=== PATIENT | male | born 1950 | race Caucasian/White ===

== ENCOUNTER 2020-12-23 20:28 | Emergency (ER) | payer OTHER ==
[~2020-12-23] VITALS: Ht 162.6 cm; Wt 69.8 kg
[~2020-12-23 20:28] MED LIST: ASPI325; LISI20 PO; Multiple Vitam1 EAC1; ROSU5 PO; Viagra100 MG PO
[2020-12-23] MEDS ORDERED: FINA5 PO (20:45)
[2020-12-23] MEDS ORDERED: TAMS.4ER PO (20:45)
[2020-12-23 21:16] LABS: Source, Urine Catheter
[2020-12-23 21:18] LABS: Bilirubin, Urine Neg (Neg); Blood, Urine 3+ (Neg); Glucose Qualitative, Urine Neg (Neg); Ketones, Urine Neg (Neg); Leukocyte Esterase, Urine Neg (Neg); Nitrite, Urine Neg (Neg); Protein, Urine Neg (Neg); Urobilinogen, Urine NORM (Normal)
[2020-12-23 21:27] LABS: Appearance, Urine Clear (Clear); Color, Urine Yellow (P-Yellow)
[2020-12-23 21:28] LABS: White Blood Cells, Urine 0-2 /hpf (0-5)
[2020-12-23 21:29] LABS: Bacteria Rare /hpf; Squamous Epithelial Cells Not Seen /hpf (Few)
== END 2020-12-23 22:20 | disposition home or self-care (01) ==
LOC: ER 20:28
PROVIDERS: Emergency Medicine
DX: N40.1 Benign prostatic hyperplasia with lower urinary tract symptoms (principal); R33.8 Other retention of urine; I10 Essential (primary) hypertension; Z88.8 Allergy status to other drugs, medicaments and biological substances; Z79.82 Long term (current) use of aspirin; Z79.899 Other long term (current) drug therapy
CPT/HCPCS: 51702; 51798; 81001; 99283-25

== ENCOUNTER → 2020-12-25 | Outpatient (CLI) | payer OTHER ==
[~2020-12-25] MED LIST changes: +FINA5 PO; +TAMS.4ER PO
== END | disposition home or self-care (01) ==
LOC: LAB 16:26 → LAB SHORT 16:26
DX: R33.9 Retention of urine, unspecified (principal)
CPT/HCPCS: 87086

== ENCOUNTER 2022-04-17 12:09 | Day surgery (SDC) | payer OTHER ==
[~2022-04-17] VITALS: Ht 162.6 cm; Wt 70.9 kg
== END 2022-04-17 14:23 | disposition home or self-care (01) ==
LOC: ORSCSDS 12:09
PROVIDERS: Internal Medicine Gastroenterology
PROC: 0DBL8ZX Excision of Transverse Colon, Via Natural or Artificial Opening Endoscopic, Diagnostic (ICD-10-PCS; principal; 2022-04-17 14:30)
PROC: 0DBN8ZX Excision of Sigmoid Colon, Via Natural or Artificial Opening Endoscopic, Diagnostic (ICD-10-PCS; principal; 2022-04-17 14:30)
PROC: 0DBP8ZX Excision of Rectum, Via Natural or Artificial Opening Endoscopic, Diagnostic (ICD-10-PCS; principal; 2022-04-17 14:30)
DX: Z12.11 Encounter for screening for malignant neoplasm of colon (principal); Z86.010 Personal history of colon polyps; D12.3 Benign neoplasm of transverse colon; D12.8 Benign neoplasm of rectum; K63.5 Polyp of colon; K62.1 Rectal polyp; K63.89 Other specified diseases of intestine; K57.30 Diverticulosis of large intestine without perforation or abscess without bleeding; K64.8 Other hemorrhoids; I10 Essential (primary) hypertension; Z87.891 Personal history of nicotine dependence; Z79.899 Other long term (current) drug therapy; Z79.82 Long term (current) use of aspirin
CPT/HCPCS: 88305; J2704; J7120

== ENCOUNTER → 2023-11-14 | Outpatient (CLI) | payer OTHER ==
[~2023-11-14] MED LIST changes: +CEFP200 PO; +ERLEADA60 MG PO; +ORGOVYX120 MG PO
[2023-11-14 12:13] LABS: BASOPHILS ABSOLUTE AUTO 0.15 K/mm3 (0.00-0.23); BASOPHILS PERCENT AUTO 1 % (0-2); EOSINOPHILS ABSOLUTE AUTO 0.26 K/mm3 (0.00-0.68); EOSINOPHILS PERCENT AUTO 2 % (0-6); Hematocrit 34.3 % (37.0-53.0); Hemoglobin 11.5 g/dL (13.5-17.5); IMMATURE GRAN ABSOLUTE AUTO 0.08 K/mm3 (0.00-0.10); IMMATURE GRAN PERCENT AUTO 1 % (0-1); LYMPHOCYTES ABSOLUTE AUTO 0.98 K/mm3 (0.84-5.20); LYMPHOCYTES PERCENT AUTO 7 % (21-46); MONOCYTES ABSOLUTE AUTO 1.85 K/mm3 (0.16-1.47); MONOCYTES PERCENT AUTO 13 % (4-13); Mean Corpuscular HGB 30.3 pg (26.0-34.0); Mean Corpuscular HGB Conc 33.5 g/dL (31.5-36.5); Mean Corpuscular Volume 91 fL (80-100); Mean Platelet Volume 8.3 fL (9.1-12.4); NEUTROPHILS ABSOLUTE AUTO 11.16 K/mm3 (1.96-9.15); NEUTROPHILS PERCENT AUTO 77 % (41-73); Platelet Count 761 K/mm3 (150-400); RDW Coefficient Variation 15.8 % (11.7-14.2); RDW Standard Deviation 50.9 fL (35.1-46.3); Red Blood Cell Count 3.79 M/mm3 (4.30-5.90); White Blood Cell Count 14.48 K/mm3 (4.00-11.30)
[2023-11-14 12:25] LABS: Albumin, Blood 2.9 g/dL (3.4-5.0); Albumin/Globulin Ratio 0.8 (0.8-1.8); Bilirubin, Total 0.3 mg/dL (0.1-1.0); Bun/Creatinine Ratio 12.4 (12.0-20.0); Calcium, Blood 8.4 mg/dL (8.5-10.1); Creatinine, Blood 0.97 mg/dL (0.60-1.20); Globulin, Blood 3.8 g/dL (2.2-4.0); Potassium, Blood 4.6 mmol/L (3.5-5.5); Total Protein, Blood 6.7 g/dL (6.4-8.2)
== END | disposition home or self-care (01) ==
LOC: LAB 12:10 → LAB SHORT 12:10
PROVIDERS: Internal Medicine
DX: R06.02 Shortness of breath (principal)
CPT/HCPCS: 80053; 83880; 85025

== ENCOUNTER 2023-11-19 09:36 | Inpatient (IN) | payer OTHER ==
[~2023-11-19] VITALS: Ht 160 cm; Wt 73.8 kg
[~2023-11-19 09:36] MED LIST changes: -CEFP200 PO; +Crestor40 MG PO; -ERLEADA60 MG PO; -ORGOVYX120 MG PO; -ROSU5 PO
[2023-11-19 10:23] LABS: BASOPHILS ABSOLUTE AUTO 0.15 K/mm3 (0.00-0.23); BASOPHILS PERCENT AUTO 1 % (0-2); EOSINOPHILS ABSOLUTE AUTO 0.07 K/mm3 (0.00-0.68); EOSINOPHILS PERCENT AUTO 1 % (0-6); Hematocrit 31.8 % (37.0-53.0); Hemoglobin 10.6 g/dL (13.5-17.5); IMMATURE GRAN ABSOLUTE AUTO 0.08 K/mm3 (0.00-0.10); IMMATURE GRAN PERCENT AUTO 1 % (0-1); LYMPHOCYTES ABSOLUTE AUTO 0.96 K/mm3 (0.84-5.20); LYMPHOCYTES PERCENT AUTO 7 % (21-46); MONOCYTES ABSOLUTE AUTO 1.76 K/mm3 (0.16-1.47); MONOCYTES PERCENT AUTO 13 % (4-13); Mean Corpuscular HGB 29.5 pg (26.0-34.0); Mean Corpuscular HGB Conc 33.3 g/dL (31.5-36.5); Mean Corpuscular Volume 89 fL (80-100); Mean Platelet Volume 8.3 fL (9.1-12.4); NEUTROPHILS PERCENT AUTO 78 % (41-73); Platelet Count 647 K/mm3 (150-400); RDW Coefficient Variation 15.5 % (11.7-14.2); RDW Standard Deviation 50.3 fL (35.1-46.3); Red Blood Cell Count 3.59 M/mm3 (4.30-5.90); White Blood Cell Count 14.02 K/mm3 (4.00-11.30)
--- NOTE | 2023-11-19 10:31 | NUR ---
Spritual Care Visit pt. is known to this swing tender as his spouse was a recent Pt. Pt. displays evidence of being engaged, alert, and aware. Pts. neighbor is at bedside as is her granddaughter. Considered matters of the pts. health journey. Prayed with Pt. Pt. and those at bedside verbalized gratitude for the spiritual care visit. Will remain available to the Pt.
[2023-11-19 10:36] LABS: Albumin, Blood 2.4 g/dL (3.4-5.0); Albumin/Globulin Ratio 0.6 (0.8-1.8); Bilirubin, Total 0.3 mg/dL (0.1-1.0); Bun/Creatinine Ratio 20.4 (12.0-20.0); C-REACTIVE PROTEIN, EXT RANGE 5.43 mg/dL (0.000-0.300); Calcium, Blood 8.2 mg/dL (8.5-10.1); Creatinine, Blood 0.69 mg/dL (0.60-1.20); Globulin, Blood 3.8 g/dL (2.2-4.0); Potassium, Blood 4.3 mmol/L (3.5-5.5); Total Protein, Blood 6.2 g/dL (6.4-8.2)
[2023-11-19 12:38] LABS: Influenza A, PCR NEGATIVE (NEGATIVE); Influenza B, PCR NEGATIVE (NEGATIVE); Resp Syncytial Virus, PCR NEGATIVE (NEGATIVE); SARS-Cov-2 (COVID-19) PCR, MMC NEGATIVE (NEGATIVE)
[2023-11-19] MEDS ORDERED: CefTRIAXone Sodium 1,000 MG in NS 100 ML IV ONE (12:55)
[2023-11-19] MEDS ORDERED: Azithromycin 500 MG in NS 250 ML IV ONE (12:55)
[2023-11-19] MEDS ORDERED: DiphenhydrAMINE HCL 25 MG Cap PO PRN (14:00)
[2023-11-19] MEDS ORDERED: Acetaminophen 325 MG TABLET PO PRN (14:00)
[2023-11-19] MEDS ORDERED: FLU VACC TS2024-25(6MOS UP)/PF 45 MCG/0.5 ML SYRINGE IM SCH (14:00)
[2023-11-19] MEDS ORDERED: Ondansetron HCl 2 MG / ML 2ML Vial IV PRN (14:00)
[2023-11-19] MEDS ORDERED: TraZODone HCl 50 MG Tab PO PRN (14:05)
[2023-11-19] MEDS ORDERED: Albuterol 2.5 MG/3 ML VIAL INH PRN (14:25)
--- NOTE | 2023-11-19 14:39 | NUR ---
Spiritual Care follow up Pt. is awake in bed and welcomes my visit. Facilitated an update on Pts. understanding of his plan of care. Normalize the Pt. experience and listen with interest and empathy. Pt. anticipates being admitted to the hospital, and verbalized gratitude for the spiritual care follow up.
[2023-11-19] MEDS ORDERED: NS 1,000 ML IV SCH (16:25)
[2023-11-19] MEDS ORDERED: NS 500 ML IV SCH (16:25)
[2023-11-19] MEDS ORDERED: NS 1,000 ML IV ONE ×4 (16:32→20:00)
[2023-11-19 20:39] LABS: Base Excess Venous -1.7 mmol/L; Bicarbonate Venous 23.6 mmol/L (24.0-30.0); pH Blood Venous 7.47 (7.34-7.37)
[2023-11-19] MEDS ORDERED: Famotidine 10 MG/ML 2ML Vial IV SCH (21:00)
[2023-11-19] MEDS ORDERED: Tamsulosin HCl 0.4 MG Cap PO SCH (21:00)
[2023-11-19] MEDS ORDERED: Sennosides 8.6 MG Tab PO SCH (21:00)
[2023-11-19] MEDS ORDERED: Lisinopril 20 MG Tab PO SCH ×2 (21:00)
[2023-11-19] MEDS ORDERED: Docusate Sodium 100 MG Cap PO SCH (21:00)
[2023-11-19 21:10] VITALS: BP 139/66
[2023-11-20 00:15] VITALS: BP 150/70
[2023-11-20 03:53] LABS: BASOPHILS ABSOLUTE AUTO 0.13 K/mm3 (0.00-0.23); BASOPHILS PERCENT AUTO 1 % (0-2); EOSINOPHILS ABSOLUTE AUTO 0.11 K/mm3 (0.00-0.68); EOSINOPHILS PERCENT AUTO 1 % (0-6); IMMATURE GRAN ABSOLUTE AUTO 0.12 K/mm3 (0.00-0.10); IMMATURE GRAN PERCENT AUTO 1 % (0-1); LYMPHOCYTES ABSOLUTE AUTO 0.63 K/mm3 (0.84-5.20); LYMPHOCYTES PERCENT AUTO 4 % (21-46); MONOCYTES ABSOLUTE AUTO 1.97 K/mm3 (0.16-1.47); MONOCYTES PERCENT AUTO 12 % (4-13); Mean Corpuscular HGB 29.8 pg (26.0-34.0); Mean Corpuscular HGB Conc 33.3 g/dL (31.5-36.5); Mean Corpuscular Volume 89 fL (80-100); Mean Platelet Volume 8.2 fL (9.1-12.4); NEUTROPHILS ABSOLUTE AUTO 13.31 K/mm3 (1.96-9.15); NEUTROPHILS PERCENT AUTO 82 % (41-73); Platelet Count 532 K/mm3 (150-400); RDW Coefficient Variation 15.9 % (11.7-14.2); RDW Standard Deviation 51.9 fL (35.1-46.3); Red Blood Cell Count 3.36 M/mm3 (4.30-5.90); White Blood Cell Count 16.27 K/mm3 (4.00-11.30)
[2023-11-20 04:13] LABS: Albumin, Blood 2.2 g/dL (3.4-5.0); Albumin/Globulin Ratio 0.7 (0.8-1.8); Bilirubin, Total 0.4 mg/dL (0.1-1.0); Bun/Creatinine Ratio 16.1 (12.0-20.0); Calcium, Blood 7.3 mg/dL (8.5-10.1); Creatinine, Blood 0.68 mg/dL (0.60-1.20); Globulin, Blood 3.2 g/dL (2.2-4.0); Potassium, Blood 4.5 mmol/L (3.5-5.5); Total Protein, Blood 5.4 g/dL (6.4-8.2)
[2023-11-20 04:19] VITALS: BP 118/66
--- NOTE | 2023-11-20 05:54 | NUR ---
SHIFT SUMMARY ASSUMED CARE OF PT AT 2018 WHO WAS TRANSFERED FROM ED. PT ARRIVED ON 6LNC SATTING AT 92%. OVERNIGHT PT DESAT TO 70% WHEN STOOD UP TO USE URINAL, PT BECAME TACHYPNEIC AND HR ELEVATED; NRB PLACED ON PT WHILE HE RECOVERED. PT THEN PLACED BACK ON 6L ONCE SATS CAME UP TO 100%. THIS WOULD OCCUR IF PT REPOSITION SELF WELL. CALLED RT TO EVALUATE PT; RT PLACED PT ON AIRVO AT 8L AND GRADUALLY HAD TO INCREASE TO 15L. RT RE-EVALUATED PT AND A CALL PLACED TO MD TO REQUEST HFNC. ORDERS PLACE. PT O2 MAINTAING 95% AND UP. PT'S BED IN LOWEST POSITION AND CALL LIGHT WITHIN REACH.
[2023-11-20 08:05] VITALS: BP 112/55
--- NOTE | 2023-11-20 08:30 | NUR ---
AM ASSESSMENT: Pt sitting up in bed with airvo on 45L 55%, biox 94% but desats to mid 80's with activity, LS with crackles in bases and diminished throughout. Resp rate mid 30's, very dispnic with activity. HR reg sinus tach. BT positive. pulses palp. Pt denies pain. Talked to patient about plan of care. Denies questions at this time. Will continue to monitor.
[2023-11-20] MEDS ORDERED: CefTRIAXone Sodium 2,000 MG in NS 100 ML IV SCH (09:00)
[2023-11-20] MEDS ORDERED: Finasteride 5 MG Tab PO SCH (09:00)
[2023-11-20] MEDS ORDERED: Azithromycin 500 MG in NS 250 ML IV SCH (09:00)
[2023-11-20] MEDS ORDERED: Enoxaparin 40 MG/0.4 ML SYR SC SCH (09:00)
[2023-11-20] MEDS ORDERED: Aspirin 81 MG Chew PO SCH (09:00)
[2023-11-20] MEDS ORDERED: ERLEADA60 MG PO (09:54)
[2023-11-20] MEDS ORDERED: ORGOVYX120 MG PO (09:55)
[2023-11-20] MEDS ORDERED: CEFP200 PO (09:57)
--- NOTE | 2023-11-20 11:33 | NUR ---
Pt. is awake in bed when he welcomes my visit. Pt. is pleasant and is known to this log marker from the community and previous family hospital visits. Facilitate an dupdate. Neighbor Homa who also serves as a care support person for the Pt. is at bedside. Seek to normalize the Pt. experience. Pt. displays evidence of trust, awareness, and engagement. Consider matters of [place] and belief. [place] for the Pt. Pt. adn caregiver both verbalize gratitude for the spiritual care visit. Will remain available.
[2023-11-20 11:50] VITALS: BP 114/69
[2023-11-20] MEDS ORDERED: Mometasone/Formoterol MDI 200/5 mcg 13 GM INH SCH (13:50)
[2023-11-20 15:34] VITALS: BP 148/71
[2023-11-20] MEDS ORDERED: ROSUVASTATIN CAL5 MG PO (16:04)
--- NOTE | 2023-11-20 18:44 | NUR ---
SHIFT SUMMARY: Pt resting in bed at this time. Has remained on Airvo throughout this shift, now at 45L 56%. Pt has been titrated up and down depending on biox. Pt desaturates with any kind of activity including using urinal in the bed. HR has remained in Sinus tach. HR increases with activity, up to 130-140. Pt had low grade fever, around 100.5. Cool washcloth given and temp decreased. Pt denies pain. Stated that his breathing felt a little better this afternoon, but still can't take a deep breath. Pt still very tachypnic at a rate of 36-40. BP has remained stable. Will continue to monitor patients needs and report to night rn.
[2023-11-20 20:27] VITALS: BP 121/65
[2023-11-20] MEDS ORDERED: MethylPREDNISolone Sod Succ 125 MG Vial IV SCH (21:00)
[2023-11-20] MEDS ORDERED: Lactobacil 2-S.Thermo-Bifido 1 1 Cap PO SCH (21:00)
[2023-11-21 00:12] VITALS: BP 116/65
[2023-11-21 03:37] LABS: BASOPHILS PERCENT AUTO 1 % (0-2); EOSINOPHILS ABSOLUTE AUTO 0.01 K/mm3 (0.00-0.68); EOSINOPHILS PERCENT AUTO 0 % (0-6); Hematocrit 29.2 % (37.0-53.0); Hemoglobin 9.4 g/dL (13.5-17.5); IMMATURE GRAN ABSOLUTE AUTO 0.08 K/mm3 (0.00-0.10); IMMATURE GRAN PERCENT AUTO 1 % (0-1); LYMPHOCYTES ABSOLUTE AUTO 0.86 K/mm3 (0.84-5.20); LYMPHOCYTES PERCENT AUTO 6 % (21-46); MONOCYTES ABSOLUTE AUTO 1.76 K/mm3 (0.16-1.47); MONOCYTES PERCENT AUTO 12 % (4-13); Mean Corpuscular HGB 29.1 pg (26.0-34.0); Mean Corpuscular HGB Conc 32.2 g/dL (31.5-36.5); Mean Corpuscular Volume 90 fL (80-100); NEUTROPHILS ABSOLUTE AUTO 12.47 K/mm3 (1.96-9.15); NEUTROPHILS PERCENT AUTO 82 % (41-73); Platelet Count 470 K/mm3 (150-400); RDW Coefficient Variation 15.9 % (11.7-14.2); RDW Standard Deviation 52.7 fL (35.1-46.3); Red Blood Cell Count 3.23 M/mm3 (4.30-5.90); White Blood Cell Count 15.28 K/mm3 (4.00-11.30)
[2023-11-21 03:56] VITALS: BP 122/63
[2023-11-21 04:01] LABS: Albumin, Blood 1.9 g/dL (3.4-5.0); Albumin/Globulin Ratio 0.6 (0.8-1.8); Bilirubin, Total 0.3 mg/dL (0.1-1.0); Bun/Creatinine Ratio 17.4 (12.0-20.0); Calcium, Blood 7.5 mg/dL (8.5-10.1); Creatinine, Blood 0.75 mg/dL (0.60-1.20); Globulin, Blood 3.2 g/dL (2.2-4.0); Potassium, Blood 4.5 mmol/L (3.5-5.5); Total Protein, Blood 5.1 g/dL (6.4-8.2)
--- NOTE | 2023-11-21 05:50 | NUR ---
SHIFT SUMMARY RESUMED CARE OF PT AT 1900. PT A&O4, COOPERATIVE IN CARE AND ABLE TO EXPRESS NEEDS. VSS, PT DENIES SOB AND CP. PT REMAINED ON HFNC 45L AT 59% WITH SATS >90%. NO ACUTE EVENTS OVERNIGHT. PT'S O2 SAT DROPS WITH ACTIVITY AND SO PT REMAINS ON BEDREST. BED IN LOWEST POSITION AND CALL LIGHT WITHIN REACH.
[2023-11-21 11:39] VITALS: BP 115/58
[2023-11-21] MEDS ORDERED: Vancomycin HCL 1,750 MG in NS 500 ML IV ONE (15:40)
[2023-11-21] MEDS ORDERED: Cefepime HCl 2,000 MG in NS 100 ML IV SCH (16:00)
[2023-11-21 17:10] VITALS: BP 116/68
[2023-11-21 18:29] LABS: Adenovirus Not Detected (NOT DETECT); Bordetella pertussis Not Detected (NOT DETECT); Chlamydophila pneumoniae Not Detected (NOT DETECT); Coronavirus 229E Not Detected (NOT DETECT); Coronavirus HKU1 Not Detected (NOT DETECT); Coronavirus NL63 Not Detected (NOT DETECT); Coronavirus OC43 Not Detected (NOT DETECT); Human Metapneumovirus Not Detected (NOT DETECT); Human Rhinovirus/Enterovirus Not Detected (NOT DETECT); Influenza A/2009-H1 Not Detected (NOT DETECT); Influenza A/H1 Not Detected (NOT DETECT); Influenza A/H3 Not Detected (NOT DETECT); Influenza B Not Detected (NOT DETECT); Mycoplasma pneumoniae Not Detected (NOT DETECT); Parainfluenza Virus 1 Not Detected (NOT DETECT); Parainfluenza Virus 2 Not Detected (NOT DETECT); Parainfluenza Virus 3 Not Detected (NOT DETECT); Parainfluenza Virus 4 Not Detected (NOT DETECT); Respiratory Syncytial Virus Not Detected (NOT DETECT); SARS-Cov-2 (COVID-19), BioFire Not Detected (NOT DETECT)
--- NOTE | 2023-11-21 19:41 | NUR ---
SHIFT SUMMARY PT IS A/O, PLEASANT AND COOPERATIVE. SR, BP WNL. AIRVO SETTINGS TITRATED TO KEEP SP02 > 90%. LUNGS COARSE, COUGH INTERMITTENT. DENIES NAUSEA, TOLERATING PO DIET WELL. NO BM TODAY. VOIDS USING URINAL IN BED. SKIN INTACT. PIV X2 INFUSING WELL. SEVERAL VISITORS TO BEDSIDE. CONSULT FOR ONCOLOGY AND PULMONOLOGY TODAY. DR. ALAMO TO BEDSIDE, SEE NEW ORDERS FOR ATB AND LABS. POC ONGOING.
[2023-11-21 20:31] VITALS: BP 124/70
[2023-11-21] MEDS ORDERED: Benzonatate 100 MG Cap PO PRN (23:30)
[2023-11-22] VITALS (7 sets, daily range): BP systolic 107–165; BP diastolic 48–87
[2023-11-22] MEDS ORDERED: Vancomycin HCL 1,250 MG in NS 250 ML IV SCH (04:00)
[2023-11-22 04:03] LABS: BASOPHILS ABSOLUTE AUTO 0.09 K/mm3 (0.00-0.23); BASOPHILS PERCENT AUTO 1 % (0-2); EOSINOPHILS ABSOLUTE AUTO 0.03 K/mm3 (0.00-0.68); EOSINOPHILS PERCENT AUTO 0 % (0-6); Hematocrit 28.1 % (37.0-53.0); Hemoglobin 9.1 g/dL (13.5-17.5); IMMATURE GRAN ABSOLUTE AUTO 0.09 K/mm3 (0.00-0.10); IMMATURE GRAN PERCENT AUTO 1 % (0-1); LYMPHOCYTES ABSOLUTE AUTO 0.59 K/mm3 (0.84-5.20); LYMPHOCYTES PERCENT AUTO 3 % (21-46); MONOCYTES PERCENT AUTO 11 % (4-13); Mean Corpuscular HGB 28.9 pg (26.0-34.0); Mean Corpuscular HGB Conc 32.4 g/dL (31.5-36.5); Mean Corpuscular Volume 89 fL (80-100); Mean Platelet Volume 8.5 fL (9.1-12.4); NEUTROPHILS ABSOLUTE AUTO 15.45 K/mm3 (1.96-9.15); NEUTROPHILS PERCENT AUTO 85 % (41-73); Platelet Count 475 K/mm3 (150-400); RDW Coefficient Variation 16.2 % (11.7-14.2); Red Blood Cell Count 3.15 M/mm3 (4.30-5.90); White Blood Cell Count 18.15 K/mm3 (4.00-11.30)
[2023-11-22 04:31] LABS: Albumin, Blood 1.9 g/dL (3.4-5.0); Albumin/Globulin Ratio 0.5 (0.8-1.8); Bilirubin, Total 0.4 mg/dL (0.1-1.0); Bun/Creatinine Ratio 21.9 (12.0-20.0); Calcium, Blood 7.6 mg/dL (8.5-10.1); Creatinine, Blood 0.73 mg/dL (0.60-1.20); Globulin, Blood 3.5 g/dL (2.2-4.0); Potassium, Blood 4.5 mmol/L (3.5-5.5); Total Protein, Blood 5.4 g/dL (6.4-8.2)
--- NOTE | 2023-11-22 05:18 | NUR ---
SHIFT SUMMARY. SHIFT HAS BEEN UNREMARKABLE. PT AOX4, PLEASANT, COOPERATIVE WITH CARE, CALLS APPROPRIATELY, ABLE TO MAKE NEEDS KNOWN. HAS BEEN ABLE TO REST COMFORTABLY THROUGHOUT MOST OF SHIFT. HAS REMAINED ON AIRVO THROUGHOUT SHIFT WITH O2 @ 45 L, FIO2 FLUCTUATING PRIMARILY IN THE 70s. HAS CONTINUED TO DENY PAIN. BP STABLE. INDEPENDENT WITH URINAL. HAS CONTINUED TO RUN SINUS TACH THROUGHOUT SHIFT. ABX ADMINISTERED ON TIME WITHOUT DIFFICULTY. BED LOCKED IN LOWEST POSITION. CALL LIGHT LEFT WITHIN REACH. CONTINUING TO MONITOR.
--- NOTE | 2023-11-22 07:54 | NUR ---
AM NOTE this rn assumed care at 0700. vital signs stable. tele sinus rhythm/sinsu tach 90-110s. patient transfered with patient healthcare account manager to chair with mininal assistance but decreased in oxygen to 66% on airvo 45l/min and 70%. this rn into room and increased oxygen to 90% and patient recovering. patient hung out in mid 80s to low 90s for about 5 mins. charge histotechnologist in room and aware. patient encouraged to breath in through his nose and pursed lip breathing due to patient being a mouth breather. patient recovered well and currently on 45l/min at 80-90% while sitting in chair eating breakfest. patient requires pre oxygenation before any activity. respirations are shallow and tachypnea in the 30s at this time. patient lung sounds dim upper lobes bilaterally and coarse dim crackles in lower lobes bilaterally. patient has a dry cough occasionally. respiratory aware. patient is alert and oriented x4. neuro is intact. patient is able to make needs known and uses call light appropriately. denies numbness or tingling in hands of feet. denies any chest pain or pain. skin is clean dry and intact. gi/gu is within normal limits. plan of care is up to date at this time.
[2023-11-22] MEDS ORDERED: Famotidine 20 MG Tab PO SCH (09:00)
[2023-11-22] MEDS ORDERED: MethylPREDNISolone Sod Succ 40 MG VIAL IV SCH ×2 (09:00→21:00)
--- NOTE | 2023-11-22 10:20 | NUR ---
UPDATE patient friend, layla in room and requesting update. this rn updated friend and addressed the patients friend concerns.
--- NOTE | 2023-11-22 12:18 | NUR ---
UPDATE patient hyperoxygenated prior to transfered back into bed. patient tolerated this well and oxygen level got to 83 with less than 2 min recover time. patient when xray in room and leaned forward and back from having imaging down desat into the low 80s and required oxygen to be turned back up. current settings on airvo 45l/min and 80%. patient recovered in about 3 mins into the high 80s low 90s.
--- NOTE | 2023-11-22 13:04 | NUR ---
UPDATE this rn called md marie to update on patient condition and going on bipap. current settings 01/22 at 55%. updated md rangel on condition and chest x ray results. md rangel inquiring about echo. senior technical business analyst coming in to do echo. plans up to date at this time.
--- NOTE | 2023-11-22 17:08 | NUR ---
shift summary md rangel in this afternoon and discussed prognosis with the patient and patients friend layla present for this conversation. see md rangel note for detials on this. after discussion patient and layla discussing what the next steps look like. this rn called patients daughter and updated hoa on the conversation that md rangel had with the patient. after this phone call hoa, her sister, and the patient had a conference call on the phone in the room discussing the news. from these conversations patient elected to be a DNR. this rn updated md marie on this and the DNR orders placed. palliative care order and spiritual care order in place. patient voiced to this rn that if he becomes bipap dependent at that time he wants to switch to comfort care. patient voiced this to family and friend as well. plan is up to date at this time. patient on airvo in the room at 45l/min and 80%.
[2023-11-22] MEDS ORDERED: HydrALAZINE HCl 20 MG / ML 1ML Vial IV PRN (21:20)
[2023-11-23 00:35] VITALS: BP 123/68
[2023-11-23 03:02] LABS: BASOPHILS ABSOLUTE AUTO 0.07 K/mm3 (0.00-0.23); BASOPHILS PERCENT AUTO 0 % (0-2); EOSINOPHILS ABSOLUTE AUTO 0.01 K/mm3 (0.00-0.68); EOSINOPHILS PERCENT AUTO 0 % (0-6); Hematocrit 28.4 % (37.0-53.0); Hemoglobin 9.2 g/dL (13.5-17.5); IMMATURE GRAN ABSOLUTE AUTO 0.18 K/mm3 (0.00-0.10); IMMATURE GRAN PERCENT AUTO 1 % (0-1); LYMPHOCYTES ABSOLUTE AUTO 0.33 K/mm3 (0.84-5.20); LYMPHOCYTES PERCENT AUTO 1 % (21-46); MONOCYTES ABSOLUTE AUTO 1.56 K/mm3 (0.16-1.47); MONOCYTES PERCENT AUTO 6 % (4-13); Mean Corpuscular HGB 28.5 pg (26.0-34.0); Mean Corpuscular HGB Conc 32.4 g/dL (31.5-36.5); Mean Corpuscular Volume 88 fL (80-100); Mean Platelet Volume 8.7 fL (9.1-12.4); NEUTROPHILS ABSOLUTE AUTO 24.06 K/mm3 (1.96-9.15); NEUTROPHILS PERCENT AUTO 92 % (41-73); Platelet Count 446 K/mm3 (150-400); RDW Coefficient Variation 16.3 % (11.7-14.2); RDW Standard Deviation 52.4 fL (35.1-46.3); Red Blood Cell Count 3.23 M/mm3 (4.30-5.90); White Blood Cell Count 26.21 K/mm3 (4.00-11.30)
[2023-11-23 03:23] LABS: Alanine Aminotransfer (ALT/SGP 15 U/L (12-78); Albumin, Blood 1.8 g/dL (3.4-5.0); Albumin/Globulin Ratio 0.5 (0.8-1.8); Alk Phos 107 U/L (50-136); Anion Gap 14 mmol/L (3-11); Aspartate Aminotrans (AST/SGOT 31 U/L (12-37); Bilirubin, Total 0.3 mg/dL (0.1-1.0); Blood Urea Nitrogen 17 mg/dL (8-24); Bun/Creatinine Ratio 24.6 (12.0-20.0); CO2, Blood 20 mmol/L (21-32); Calcium, Blood 7.7 mg/dL (8.5-10.1); Chloride, Blood 107 mmol/L (98-108); Creatinine, Blood 0.69 mg/dL (0.60-1.20); Globulin, Blood 3.4 g/dL (2.2-4.0); Glomerular Filtration Rate 98 (60-); Glucose, Blood 176 mg/dL (70-99); Potassium, Blood 4.9 mmol/L (3.5-5.5); Sodium, Blood 136 mmol/L (136-145); Total Protein, Blood 5.2 g/dL (6.4-8.2)
[2023-11-23 03:57] VITALS: BP 108/66
[2023-11-23] MEDS ORDERED: Vancomycin HCL 1,500 MG in NS 250 ML IV SCH (04:00)
--- NOTE | 2023-11-23 05:06 | NUR ---
SHIFT SUMMARY. PT CONDITION HAS OVERALL REMAINED STABLE THROUGHOUT SHIFT. PT WAS ON V60 @ CPAP SETTINGS THROUGHOUT MAJORITY OF SHIFT. AT ABOUT ~0330 THIS MORNING, PT REQUESTED TO TAKE OFF THE MASK AND SWITCH BACK TO THE AIRVO. AIRVO SETTINGS AT 45 L, 92% FIO2. DURING VERY BRIEF TIME SWITCHING BETWEEN V60 TO AIRVO, PT DESATURATED INTO LOW 80s AND TOOK SOME TIME TO RECOVER. SINCE THAT TIME, PT HAS BEEN WEARING THE AIRVO AT AFOREMENTIONED SETTINGS AND HAS MAINTAINED 88%=<. DESATURATES AT TIMES WITH TALKING OR DRINKING. WHEN DIRECTED TO FOCUS ON BREATHING, WILL RESATURATE WITH SOME EFFORT. UPON TAKING OFF V60 MASK, PT VOICED THAT HE "DOES NOT WANT TO DO THIS ANYMORE" AND THAT HE "KNOWS THAT EITHER WAY HE IS NOT GOING TO BE COMFORTABLE". [place] CONVERSATION WITH PT. THIS RN SPOKE WITH DAUGHTER EARLY IN SHIFT WHO INFORMED THAT SHE WOULD BE FLYING IN FROM [place] EARLY THIS MORNING TO VISIT PT. PT WAS AGREEABLE TO WEARING V60 IF NEED BE UNTIL HIS DAUGHTERS ARRIVE TO SEE HIM. SO LONG HIS O2 SATURATION ALLOWS IT, PT WOULD LIKE TO REMAIN ON AIRVO LONG POSSIBLE UNTIL DAUGHTERS ARRIVE. AGREED WITH THIS PLAN. HAVE BEEN CLOSELY MONITORING SINCE. PT HAS BEEN TACHYCARDIC AND TACHYPNEIC THROUGHOUT SHIFT. BP STABLE, MOST RECENT MEASURE SOMEWHAT SOFT. PT CONTINUES TO DENY PAIN AND REPORT BEING COMFORTABLE DESPITE CONDITION. REMAINS INDEPENDENT WITH URINAL. BED LOCKED IN LOWEST POSITION. CALL LIGHT LEFT WITHIN REACH. CONTINUING TO MONITOR.
--- NOTE | 2023-11-23 06:01 | NUR ---
MORE RECENT CONVERSATION WITH PT. WHILE PT WAS FALLING ASLEEP, SATS WERE DROPPING TO AND MAINTAINING AT 83-87%. WOKE PT TO DISCUSS AIRVO VS V60. REMINDED OF PREVIOUS CONVERSATION IN WHICH HE EXPLAINED THAT HE WANTED TO BE ABLE TO WEAR AIRVO DURING VISIT WITH DAUGHTERS. INFORMED THAT WEARING CPAP FOR AT LEAST FEW MORE HOURS WILL LIKELY HELP PT TO TOLERATE AIRVO BETTER DURING VISIT WITH DAUGHTERS. AT THIS TIME, PT IS OPTING TO STICK WITH AIRVO AND DOES NOT WANT TO GO BACK ON THE V60. DISCUSSION REGARDING POSSIBILITY OF SIGNIFICANTLY DECREASED O2 SATURATIONS THAT MIGHT NOT BE RECOVERED THROUGH AIRVO. PT INFORMED THAT EVEN IN SUCH AN EVENT HE WOULD PREFER TO REMAIN ON AIRVO VS V60. WHILE AWAKE, PT IS ABLE TO MAINTAIN 88%>. RT TUNED AIRVO TO 60 L. CONTINUING TO CLOSELY MONITOR.
[2023-11-23 08:22] VITALS: BP 140/67
[2023-11-23 11:42] VITALS: BP 122/66
--- NOTE | 2023-11-23 12:49 | NUR ---
ASSUMING CARE ASSUED CARE FROM ANOTHER PCU NURSE AT 1200. DID BEDSIDE HANDOFF TO MEET PT. FAMILY IN THE ROOM, CALL LIGHT IN REACH.
[2023-11-23] MEDS ORDERED: LORazepam 2 MG/ML 1ML Injection IV PRN (14:25)
[2023-11-23] MEDS ORDERED: Scopolamine Hydrobromide Patch TOP PRN (14:25)
[2023-11-23] MEDS ORDERED: Atropine Sulfate 1% Opth Soln 2ML BTL SL PRN (14:25)
[2023-11-23] MEDS ORDERED: HYDROmorphone HCl/Pf 1MG SYR IV PRN (14:25)
[2023-11-23] MEDS ORDERED: Morphine Sulfate 20 MG/1ML 1 ML Oral Syringe SL PRN (14:25)
--- NOTE | 2023-11-23 17:34 | NUR ---
MET WITH PATIENT TO DISCUSS GOALS. PROVIDER WAS PRESENT DURING THIS DISCUSSION AND DESCRIBED THEY DISEASE PROGRESSION. FRIEND WAS AT BEDSIDE. SHE REPORTED THAT THEY HAD AN INDEPTH CONVERSATION AND WERE WANTING TO SHIFT TREATMENT FOR FOCUS MORE ON COMFORT MEASURES. PATIENT WANTED TO WAIT TO MAKE THAT TRANSITION UNTIL FAMILY ARRIVED FROM [place]. PC WILL CONTINUE TO FOLLOW
--- NOTE | 2023-11-23 18:41 | NUR ---
SHIFT SUMMARY PATIENT IS COMFORT CARE, PT APPEARS COMFORTABLE, FAMILY AT BEDSIDE. PT HAS BEEN MEDICATED PER THE EMAR. CALL LIGHT IN REACH, WILL CONTINUE TO [place] UNTIL END OF SHIFT.
--- NOTE | 2023-11-23 20:05 | NUR ---
ASSUMED CARE PT'S FAMILY AT BEDSIDE. INFORMED FAMILY TO LET THIS RN KNOW IF THEY NEED ANYTHING OR IF THEY OBSERVE THE PT LOOKING UNCOMFORTABLE. THE PT WAS RESTING QUIETLY AND DID NOT APPEAR IN ANY DISTRESS. PT PASSED AT 1940, VERIFIED W/ VINICIUS CASE AND CALL WAS MADE TO HOSPITALIST.
--- NOTE | 2023-11-23 22:00 | NUR ---
UPDATE PT'S FAMILY NOTIFIED PRIMARY RN ALEX TAFOYA THAT PT HAD PASSED AT 1940. THIS RN AND PRIMARY RN ALEX TAFOYA INTO ROOM TO CONFIRM TIME OF . NO BREATH SOUNDS HEARD AND NO PULSE IDENTIFIED. DR. 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 FAMILY OF PT THOROUGHLY EDUCATED ON ORGAN DONOR PROCESS WELL ESTABLISHED WHICH MORTUARY THEY WISHED TO USE. PT'S DAUGHTER (SIMON) IS FAMILY POINT OF CONTACT AND STATED THEY WOULD LIKE TO USE [facility]. DAVID FROM THE DONOR LINE CALLED BACK AND PT WAS NOT CANDIDATE FOR ORGAN DONATION. [facility] NOTIFIED. DUARTE FALK FROM [facility] ARRIVED TO CURING BIN OPERATOR PT AT 0 AND LEFT WITH PT AROUND 2209. ALL PATIENT BELONGINGS LEFT WITH DUARTE.
== END 2023-11-23 22:10 | DRG 871 ==
LOC: ER 09:36 → MEDS 13:55 → PCU 13:55
PROVIDERS: Emergency Medicine; Internal Medicine Critical Care Medicine; Nurse Practitioner Acute Care; ADMIT Family Medicine
PROC: 5A0935A Assistance with Respiratory Ventilation, Less than 24 Consecutive Hours, High Flow/Velocity Cannula (ICD-10-PCS; 2023-11-20)
PROC: 3E03329 Introduction of Other Anti-infective into Peripheral Vein, Percutaneous Approach (ICD-10-PCS; principal; 2023-11-21)
PROC: 5A09357 Assistance with Respiratory Ventilation, Less than 24 Consecutive Hours, Continuous Positive Airway Pressure (ICD-10-PCS; 2023-11-22)
DX: A41.9 Sepsis, unspecified organism (principal); J18.9 Pneumonia, unspecified organism; J80 Acute respiratory distress syndrome; C79.51 Secondary malignant neoplasm of bone; Z51.5 Encounter for palliative care; Z66 Do not resuscitate; I10 Essential (primary) hypertension; C61 Malignant neoplasm of prostate; E78.5 Hyperlipidemia, unspecified; N40.0 Benign prostatic hyperplasia without lower urinary tract symptoms; R73.03 Prediabetes; L30.9 Dermatitis, unspecified; Z88.8 Allergy status to other drugs, medicaments and biological substances; Z87.891 Personal history of nicotine dependence; Z79.899 Other long term (current) drug therapy; Z79.82 Long term (current) use of aspirin
CPT/HCPCS: 0202U; 0241U; 36415; 71045; 71046; 71260; 80053; 80202; 82330; 82803; 83605; 83880; 84145; 84484; 85025; 86140; 87040; 87449; 93005; 93010; 93306; 94640; 94660; 94664; 94762; 99285-25; A9270; J0456; J0692; J0696; J1650; J2060; J2405; J2919; J3370; J7030; J7040; J7050; Q9967